=== PATIENT | female | born 1955 | race Caucasian/White ===

== ENCOUNTER → 2017-10-08 | Outpatient (CLI) | payer OTHER ==
--- NOTE | 2017-10-08 11:58 | KCIC ---
RENAL COMPLETE BILATERAL History: Chronic cystitis Comparison: None. Findings: Multiple sonographic images of the kidneys, urinary bladder, and retroperitoneal structures are submitted. Right kidney measured 9.4 x 3.5 x 4.6 cm. Left kidney measured 9.8 x 4.6 x 4.6 cm. There is no hydronephrosis of either kidney. There is increased echogenicity of the renal parenchyma bilaterally. Ureteral jets are not seen in the urinary bladder lumen during exam although limited evaluation of the urinary bladder due to bowel gas. There is segmental visualization of the inferior vena cava. Visualized abdominal aortic caliber is within normal limits up to 1.8 cm although proximally not seen due to bowel gas. Impression: 1. Kidneys are somewhat small and echogenic which may be seen with medical renal disease, no hydronephrosis. Electronically signed by: Blade Ring MD (10/08/2017 11:55 AM) [id number]
== END | disposition home or self-care (01) ==
LOC: KCIC US 08:35
PROVIDERS: ATTEND Internal Medicine Nephrology
DX: N30.20 Other chronic cystitis without hematuria (principal)
CPT/HCPCS: 76770

== ENCOUNTER → 2017-11-13 | Outpatient (CLI) | payer OTHER ==
--- NOTE | 2017-11-13 15:41 | KCIC ---
Bilateral digital screening mammogram History: 62-year-old female presents for annual screening mammography. Patient reports interval 115 pounds weight loss. Comparison: September 20, 2014, October 12, 2008 Findings: Breast Tissue Density B :There are scattered areas of fibroglandular density. Bilateral digital mammogram images are obtained with CAD. No suspicious masses, architectural distortion, or grouped microcalcifications are identified. Impression: Negative exam. Recommend screening mammogram in one year. BI-RADS Category 1: Negative. PQRS compliance statement - Patient information was entered into a reminder system with a target due date for the next mammogram. Electronically signed by: Martha Lei MD (11/13/2017 3:38 PM) [id number]
== END | disposition home or self-care (01) ==
LOC: KCIC MAMMO 13:42
PROVIDERS: ATTEND Preventive Medicine Public Health & General Preventive Medicine
DX: Z12.31 Encounter for screening mammogram for malignant neoplasm of breast (principal); R63.4 Abnormal weight loss
CPT/HCPCS: G0202; 77067

== ENCOUNTER → 2019-12-09 | Outpatient (CLI) | payer BC, OTHER ==
--- NOTE | 2019-12-10 09:00 | KCIC ---
Bilateral digital screening mammograms: Reason for examination: Routine screening. Comparison is made to previous studies dated 11/13/2017 and 09/20/2014. Interpretation was made with the benefit of CAD. The skin and nipples show no abnormalities. No abnormal axillary lymph nodes are seen. The breast parenchyma shows scattered fibroglandular density. (Breast density: Category B.) There are no dominant masses, suspicious calcifications or architectural distortions. Impression: No evidence of malignancy. Recommend routine screening. BI-RADS Category 1: Negative. "Our facility is accredited by the [employer] Mammography Program." This patient's information has been entered into a reminder system for the patient to be notified with the results of her examination and a target date for the next mammogram. Electronically signed by: Xiomy Robertson MD (12/10/2019 8:57 AM) [id number]
== END | disposition home or self-care (01) ==
LOC: KCIC MAMMO 12:02
PROVIDERS: ATTEND Preventive Medicine Public Health & General Preventive Medicine
DX: Z12.31 Encounter for screening mammogram for malignant neoplasm of breast (principal)
CPT/HCPCS: 77067